=== PATIENT | male | born 1975 | race Caucasian/White ===

== ENCOUNTER → 2021-09-10 | Outpatient (CLI) | payer BC | LOC: M WUC 15:36 | PROVIDERS: ATTEND Nurse Practitioner Family | DX: Z86.16 Personal history of COVID-19 (principal) ==

== ENCOUNTER → 2021-10-07 | Outpatient (CLI) | payer OTHER ==
[~2021-10-07] MED LIST: METHACHOLINE KIT (J7674) INH ONE
== END ==
LOC: M CARPUL 14:16
PROVIDERS: ATTEND Nurse Practitioner Family
DX: R06.00 Dyspnea, unspecified (principal)
CPT/HCPCS: 94070; J7674

== ENCOUNTER → 2021-10-29 | Outpatient (CLI) | payer OTHER | LOC: M PLAIMG 10:46 | PROVIDERS: ATTEND Nurse Practitioner Family | DX: R06.00 Dyspnea, unspecified (principal) ==